=== PATIENT | male | born 1985 | race American Indian/Alaskan Native ===

== ENCOUNTER 2016-05-07 08:54 | Emergency (ER) | payer SELFPAY ==
[~2016-05-07] VITALS: Ht 167.6 cm; Wt 63.5 kg
[2016-05-07] MEDS ORDERED: NKM (09:09)
[2016-05-07 09:23] VITALS: BP 120/81
[2016-05-07] MEDS ORDERED: Ketorolac 30mg Inj IM ONE (09:30)
[2016-05-07] MEDS ORDERED: Norco 5mg/325mg tab ORAL ONE ×2 (09:30→10:30)
[2016-05-07] MEDS ORDERED: CYCLOBENZAPRINE10 MG ORAL (10:50)
[2016-05-07] MEDS ORDERED: IBUPROFEN600 MG ORAL (10:50)
[2016-05-07] MEDS ORDERED: NORCO 5-325 TA1 EACH ORAL (10:50)
[2016-05-07 10:58] VITALS: BP 118/78
[2016-05-07 11:00] VITALS: BP 118/78
--- NOTE | 2016-05-08 06:59 | Emergency Room Report ---
History of Present Illness General Chief Complaint: Pain Source: Patient Present Illness HPI 30-year-old male presents ED complaining of left-sided neck pain and shoulder pain x1 day. States that he performs heavy lifting at home 2 days earlier. Patient presents with neck stiffness, neck pain and shoulder pain. Patient states he cannot move his neck. Pain is sharp. 10 out of 10. Radiating from the shoulder to the neck. No other aggravating or relieving factors. Denies fevers or chills. Denies blurry vision. Denies nausea or vomiting. Denies any other associated symptoms Allergies: Coded Allergies: No Known Allergies (Unverified , 05/07/16) Patient History Past Medical History: none Past Surgical History: none Pertinent Family History: none Social History: Denies: alcohol use, drug use, smoking Immunizations: UTD Reviewed Nursing Documentation: PMH: Agreed, PSxH: Agreed Nursing Documentation-PMH Past Medical History: No Stated History Review of Systems All Other Systems: negative except mentioned in HPI Physical Exam Vital Signs Date Time Temp Pulse Resp B/P Pulse Ox O2 Delivery O2 Flow Rate FiO2 05/07/16 09:04 98.1 75 14 120/81 98 Room Air Sp02 EP Interpretation: reviewed, normal General Appearance: alert, GCS 15, non-toxic, mild distress Head: normocephalic Eyes: bilateral eye PERRL, bilateral eye normal inspection ENT: hearing grossly normal, normal pharynx, no angioedema, normal voice Neck: limited range of motion, tender lateral Respiratory: chest non-tender, lungs clear, normal breath sounds, speaking full sentences Cardiovascular #1: regular rate, rhythm, no edema Gastrointestinal: normal inspection Rectal: deferred Genitourinary: no CVA tenderness Musculoskeletal: tender - paraspinal tenderness Neurologic: alert, oriented x3, responsive, motor strength/tone normal, sensory intact, speech normal Psychiatric: judgement/insight normal, memory normal, mood/affect normal, no suicidal/homicidal ideation Skin: normal inspection Lymphatic: normal inspection Medical Decision Making Diagnostic Impression: Primary Impression: Muscle strain ER Course Hospital Course 30-year-old male presents ED complaining of neck and shoulder pain. No evidence of trauma Differential diagnoses include: neck strain, back strain, rib contusion Clinical course Patient placed on stretcher. After initial history and physical I ordered toradol, [place] and valium for pain. Upon reassessment patient states pain has improved. Upon review of EMR, patient does not have any visits to ED requesting pain medications. Diagnosis - muscle strain Stable and discharged to home with prescription for Motrin, [place], Flexeril. Followup with PMD. Return to ED if symptoms recur or worsen Last Vital Signs Date Time Temp Pulse Resp B/P Pulse Ox O2 Delivery O2 Flow Rate FiO2 05/07/16 11:00 98.1 72 16 118/78 98 Room Air Status: improved Disposition: HOME, SELF-CARE Condition: Stable Scripts Cyclobenzaprine Hcl* (FLEXERIL*) 10 Mg Tablet 10 MG ORAL TID Y for Muscle Spasm, #20 TAB Prov: PRATIK MAN M.D. 05/07/16 Hydrocodone Bit/Acetaminophen 5-325* (NORCO 5-325*) 1 Each Tablet 1 TAB ORAL Q6H Y for For Pain, #10 TAB 0 Refills Prov: PRATIK MAN M.D. 05/07/16 Ibuprofen* (MOTRIN*) 600 Mg Tablet 600 MG ORAL Q8H Y for For Pain, #30 TAB 0 Refills Prov: PRATIK MAN M.D. 05/07/16 Referrals: NOT CHOSEN ALVERTO/,REFERRING (PCP) Patient Instructions: Muscle Strain, [id number] PRATIK MAN M.D. May 08, 2016 06:59
== END 2016-05-07 11:01 | disposition home or self-care (01) ==
LOC: EMR 09:45
DX: T14.8 Other injury of unspecified body region (principal); X50.0XXA Overexertion from strenuous movement or load, initial encounter; Y92.009 Unspecified place in unspecified non-institutional (private) residence as the place of occurrence of the external cause; M25.519 Pain in unspecified shoulder
CPT/HCPCS: 96372; 99284; J1885